=== PATIENT | male | born 1980 | race Two or more races ===

== ENCOUNTER 2016-03-21 14:58 | Emergency (ER) | payer SELFPAY ==
--- NOTE | 2016-03-21 15:49 | RAD ---
Name: KAILA IZAGUIRRE Exam: Two-view chest Comparison: None Clinical history: Cough and fever Findings: 2 views the chest are submitted. Heart mediastinum and hilar structures are normal. There is no failure, infiltrate, pleural effusion or pneumothorax. Projected in the periphery of the right upper lobe, there is a vague 19 mm oval low-density structure. Given the patient's age, artifact could have this appearance. Follow-up 2 view chest recommended. Costochondral calcification is present. Impression: 1. 1.9 survey density right upper lobe. This may be artifactual. Follow-up 2 view chest is recommended. 2. No acute cardiopulmonary process
[2016-03-21] MEDS ORDERED: ALBUTEROL/IPRATROPIUM 2.5/0.5 MG 3 ML/EACH DOSE ONE (17:36)
[2016-03-21] MEDS ORDERED: DEXAMETHASONE SOD PHOS 10 MG/1 ML VIAL ONE (17:55)
== END 2016-03-21 18:48 | disposition home or self-care (01) ==
LOC: ED 14:58
DX: J20.9 Acute bronchitis, unspecified (principal); K05.10 Chronic gingivitis, plaque induced
CPT/HCPCS: 71020; 87804; 94640; 99283 ×2; J1100